=== PATIENT | male | born 1975 | race Caucasian/White ===

== ENCOUNTER 2020-09-06 17:18 | Inpatient (IN) | payer OTHER ==
[~2020-09-06] VITALS: Ht 172.7 cm; Wt 100.0 kg
[2020-09-06 18:24] LABS: BASOPHILS # (AUTO) 0.1 X10'3 (0-0.2); BASOPHILS % (AUTO) 0.9 % (0-1); EOSINOPHILS # (AUTO) 0.1 X10'3 (0-0.9); EOSINOPHILS % (AUTO) 0.8 % (0-6); HEMATOCRIT 53.5 % (42.0-52.0); LYMPHOCYTES # (AUTO) 1.4 X10'3 (1.1-4.8); LYMPHOCYTES % (AUTO) 14.1 % (21-51); MEAN CORPUSCULAR HEMOGLOBIN 31.1 PG (27.0-31.0); MEAN CORPUSCULAR VOLUME 91.5 FL (78-98); MEAN PLATELET VOLUME 9.9 FL (7.4-10.4); MONOCYTES # (AUTO) 0.7 X10'3 (0-0.9); MONOCYTES % (AUTO) 6.6 % (2-12); NEUTROPHILS # (AUTO) 7.8 X10'3 (1.8-7.7); NEUTROPHILS % (AUTO) 77.6 % (42-75); PLATELET COUNT 263 X10'3 (140-440); RED BLOOD COUNT 5.84 X10'6 (4.70-6.10); RED CELL DISTRIBUTION WIDTH 13.1 % (11.5-14.5); WHITE BLOOD COUNT 10.1 X10'3 (4.5-11.0)
[2020-09-06 18:29] LABS: HEMOGLOBIN 18.2 g/dl (14.0-17.9)
[2020-09-06 18:32] LABS: ALANINE AMINOTRANSFERASE 249 U/L (12-78); ALBUMIN 3.7 G/DL (3.4-5.0); ALBUMIN/GLOBULIN RATIO 0.9 (1.1-1.5); ALKALINE PHOSPHATASE 446 IU/L (46-116); ANION GAP 7 (8-16); ASPARTATE AMINO TRANSFERASE 105 U/L (10-37); BILIRUBIN,TOTAL 6.7 MG/DL (0.1-1.0); BLOOD UREA NITROGEN 15 MG/DL (7-18); CALCIUM 11.3 MG/DL (8.5-10.1); CHLORIDE 99 MMOL/L (99-107); CREATININE 1.07 MG/DL (0.60-1.10); GLUCOSE 107 MG/DL (70-104); LIPASE 57 U/L (73-393); POTASSIUM 3.7 MMOL/L (3.5-5.1); SODIUM 137 MMOL/L (135-145); TOTAL CARBON DIOXIDE 31.3 MMOL/L (24-32); TOTAL PROTEIN 7.6 G/DL (6.4-8.2); eGFR 75 ML/MIN
[2020-09-06] MEDS ORDERED: pantoprazole 40 MG vial IV ONE (18:45)
[2020-09-06] MEDS ORDERED: ondansetron/PF 4mg/2ml inj IV ONE (18:45)
[2020-09-06] MEDS ORDERED: normal saline 1000ML IV soln IVB ONE (18:45)
--- NOTE | 2020-09-06 18:59 | NUR ---
U/S CALLED BACK AT [address]
--- NOTE | 2020-09-06 20:24 | NUR ---
PT STATES HE IS IN ALOT OF PAIN MD AWARE BUT CONCERNED HE WILL RECEIVE PAIN MEDS AND THEN LEAVE AND DRIVE. JUDY RN WORKING ON GETTING PTS SISTERS PHONE NUMBER
--- NOTE | 2020-09-06 20:29 | NUR ---
PTS SISTER CALLED TWICE [phone], NO ANSWER. AWAITING TRANSPORT TO ADMINISTER PAIN MEDICATION BECAUSE PT DROVE HIMSELF TO HOSPITAL.
--- NOTE | 2020-09-06 20:30 | NUR ---
INFORMED BY RON KIM THAT THE SISTER DID NOT ANSWER THE PHONE.
[2020-09-06] MEDS ORDERED: morphine 4 MG/ML inj SYRINge IV ONE (20:35)
[2020-09-06] MEDS ORDERED: LORazepam 2 mg/ml vial IV ONE (20:35)
--- NOTE | 2020-09-06 20:38 | NUR ---
SPOKE TO YURI: FRIEND...[phone] HE IS AWARE THAT HE IS HERE,
[2020-09-06] MEDS ORDERED: piperacillin/tazo 3.375gm/50ml 50 ML IV ONE (20:45)
[2020-09-06] MEDS ORDERED: morphine 2 MG/ML inj. syringe IV PRN (21:05)
[2020-09-06] MEDS ORDERED: potassium Cl 40MEQ/1/2NS 520ml 520 ML IV PRN ×2 (21:05)
[2020-09-06] MEDS ORDERED: ondansetron/PF 4mg/2ml inj IV PRN (21:05)
[2020-09-06] MEDS: normal saline 1000ml 1,000 ML IV SCH (21:13)
[2020-09-06] MEDS ORDERED: NO HOME MEDS (21:53)
[2020-09-06 22:05] VITALS: BP 153/95
--- NOTE | 2020-09-06 22:05 | NUR ---
PATIENT ADMITTED TO ROOM 347B FROM ER FOR CHOLECYSTITIS, CHOLEDOCHOLITHIASIS, HYPERCALCEMIA, POLYCYTHEMIA AND CHI. PLACED COMFORTABLE IN BED. VITAL SIGNS TAKEN AND RECORDED.
[2020-09-06] MEDS ORDERED: LORazepam 2 mg/ml vial IV PRN (22:25)
[2020-09-06] MEDS: diphenhydrAMINE 2%/zinc acetate cream TP PRN (22:57)
[2020-09-07] MEDS: normal saline 1000ml 1,000 ML IV SCH ×2 (05:30→15:49)
[2020-09-07] MEDS: piperacillin/tazo 3.375gm/50ml 50 ML IV SCH ×3 (05:37→22:12)
--- NOTE | 2020-09-07 06:14 | NUR ---
Problems reprioritized. Patient report given, questions answered & plan of care reviewed with SANG RN.
--- NOTE | 2020-09-07 06:25 | NUR ---
Patient in room [facility] 347. I have received report from Tana Fajardo RN and had the opportunity to ask questions and assume patient care.
[2020-09-07 06:39] LABS: BASOPHILS % (AUTO) 0.4 % (0-1); EOSINOPHILS # (AUTO) 0.1 X10'3 (0-0.9); EOSINOPHILS % (AUTO) 0.6 % (0-6); HEMATOCRIT 48.8 % (42.0-52.0); HEMOGLOBIN 16.3 g/dl (14.0-17.9); LYMPHOCYTES # (AUTO) 0.9 X10'3 (1.1-4.8); LYMPHOCYTES % (AUTO) 10.8 % (21-51); MEAN CORPUSCULAR HGB CONC 33.5 g/dL (33.0-36.5); MEAN CORPUSCULAR VOLUME 92.7 FL (78-98); MEAN PLATELET VOLUME 10.5 FL (7.4-10.4); MONOCYTES # (AUTO) 0.7 X10'3 (0-0.9); NEUTROPHILS # (AUTO) 6.9 X10'3 (1.8-7.7); NEUTROPHILS % (AUTO) 80.2 % (42-75); PLATELET COUNT 217 X10'3 (140-440); RED BLOOD COUNT 5.27 X10'6 (4.70-6.10); RED CELL DISTRIBUTION WIDTH 13.5 % (11.5-14.5); WHITE BLOOD COUNT 8.6 X10'3 (4.5-11.0)
[2020-09-07 07:00] VITALS: BP 129/83
[2020-09-07 07:29] LABS: ALANINE AMINOTRANSFERASE 177 U/L (12-78); ALKALINE PHOSPHATASE 401 IU/L (46-116); ANION GAP 12 (8-16); ASPARTATE AMINO TRANSFERASE 65 U/L (10-37); BILIRUBIN,TOTAL 8.5 MG/DL (0.1-1.0); BLOOD UREA NITROGEN 12 MG/DL (7-18); BUN/CREATININE RATIO 12.6 (5.4-32.0); CALCIUM 9.1 MG/DL (8.5-10.1); CHLORIDE 104 MMOL/L (99-107); CREATININE 0.95 MG/DL (0.60-1.10); GLUCOSE 103 MG/DL (70-104); SODIUM 140 MMOL/L (135-145); TOTAL CARBON DIOXIDE 24.2 MMOL/L (24-32); eGFR 86 ML/MIN
[2020-09-07 07:31] LABS: ALBUMIN/GLOBULIN RATIO 0.9 (1.1-1.5); POTASSIUM 4.3 MMOL/L (3.5-5.1); TOTAL PROTEIN 6.3 G/DL (6.4-8.2)
[2020-09-07] MEDS: K and/or MAG REPLACEMENT MC SCH ×2 (08:00→20:00)
--- NOTE | 2020-09-07 08:21 | NUR ---
Dr. Simpson in to see patient. Possible removal of gallbladder tomorrow pending MRCP today. Risks and Benefits explained by MD with patients Verbal acknowledgement.
[2020-09-07] MEDS ORDERED: haloperidol lactate 5mg/ml inj IM PRN ×2 (10:50)
[2020-09-07] MEDS ORDERED: haloperidol 5mg tablet PO PRN ×2 (10:50)
[2020-09-07] MEDS ORDERED: LORazepam 2 mg/ml vial IV PRN ×2 (10:50)
[2020-09-07 11:06] VITALS: BP 112/67
[2020-09-07] MEDS ORDERED: nicotine 21mg patch - 24 hr TD ONE (11:50)
[2020-09-07] MEDS: diphenhydrAMINE 2%/zinc acetate cream TP PRN (12:24)
[2020-09-07] MEDS: HYDROmorphone 1 mg/ml syringe IV PRN (17:18)
--- NOTE | 2020-09-07 19:00 | NUR ---
Problems reprioritized. Patient report given, questions answered & plan of care reviewed with RON Paredes.
--- NOTE | 2020-09-07 19:24 | NUR ---
Patient in room [facility] 347. I have received report from RON Pickett and had the opportunity to ask questions and assume patient care.
--- NOTE | 2020-09-07 19:25 | NUR ---
I have received report from RON Pickett and had the opportunity to ask questions and assume patient care.
[2020-09-07] MEDS: lactobacillus rhamnosus 10,000 MMU CELLS/CAPSULE PO SCH (19:57)
[2020-09-07] MEDS: LORazepam 1 MG tablet PO PRN (19:57)
[2020-09-07 20:00] VITALS: BP 146/100
[2020-09-07 23:40] VITALS: BP 153/90
[2020-09-08] VITALS (14 sets, daily range): BP systolic 100–176; BP diastolic 55–115
[2020-09-08] MEDS: normal saline 1000ml 1,000 ML IV SCH ×3 (00:59→23:05)
[2020-09-08] MEDS: LORazepam 1 MG tablet PO PRN ×2 (00:59→21:50)
[2020-09-08] MEDS: piperacillin/tazo 3.375gm/50ml 50 ML IV SCH ×3 (05:37→21:54)
[2020-09-08 06:16] LABS: BASOPHILS % (AUTO) 0.3 % (0-1); EOSINOPHILS # (AUTO) 0.1 X10'3 (0-0.9); EOSINOPHILS % (AUTO) 1.2 % (0-6); HEMATOCRIT 48.2 % (42.0-52.0); HEMOGLOBIN 16.5 g/dl (14.0-17.9); LYMPHOCYTES # (AUTO) 0.9 X10'3 (1.1-4.8); LYMPHOCYTES % (AUTO) 9.7 % (21-51); MEAN CORPUSCULAR HEMOGLOBIN 31.6 PG (27.0-31.0); MEAN CORPUSCULAR HGB CONC 34.1 g/dL (33.0-36.5); MEAN CORPUSCULAR VOLUME 92.7 FL (78-98); MEAN PLATELET VOLUME 9.7 FL (7.4-10.4); MONOCYTES # (AUTO) 0.6 X10'3 (0-0.9); MONOCYTES % (AUTO) 6.6 % (2-12); NEUTROPHILS # (AUTO) 7.6 X10'3 (1.8-7.7); NEUTROPHILS % (AUTO) 82.2 % (42-75); PLATELET COUNT 183 X10'3 (140-440); RED CELL DISTRIBUTION WIDTH 13.1 % (11.5-14.5); WHITE BLOOD COUNT 9.2 X10'3 (4.5-11.0)
[2020-09-08 06:19] LABS: PRE OP PARTIAL THROMB. TIME 28 SECONDS (22-32)
--- NOTE | 2020-09-08 06:20 | NUR ---
Patient in room [facility] 347. I have received report from RON Paredes and had the opportunity to ask questions and assume patient care.
--- NOTE | 2020-09-08 06:26 | NUR ---
Problems reprioritized. Patient report given, questions answered & plan of care reviewed with RON Pickett.
--- NOTE | 2020-09-08 06:27 | NUR ---
Patient report given, questions answered & plan of care reviewed with RON Pickett from [facility] Don[facility] CONN. I agree with her report and documentation during this shift..
[2020-09-08 06:45] LABS: ALANINE AMINOTRANSFERASE 118 U/L (12-78); ALBUMIN 2.9 G/DL (3.4-5.0); ALKALINE PHOSPHATASE 379 IU/L (46-116); ANION GAP 12 (8-16); ASPARTATE AMINO TRANSFERASE 43 U/L (10-37); BILIRUBIN,TOTAL 10.1 MG/DL (0.1-1.0); BLOOD UREA NITROGEN 8 MG/DL (7-18); BUN/CREATININE RATIO 9.8 (5.4-32.0); CALCIUM 8.9 MG/DL (8.5-10.1); CHLORIDE 100 MMOL/L (99-107); CREATININE 0.82 MG/DL (0.60-1.10); GLUCOSE 93 MG/DL (70-104); SODIUM 136 MMOL/L (135-145); TOTAL CARBON DIOXIDE 24.1 MMOL/L (24-32); eGFR > 90 ML/MIN
[2020-09-08 06:47] LABS: ALBUMIN/GLOBULIN RATIO 0.8 (1.1-1.5); TOTAL PROTEIN 6.6 G/DL (6.4-8.2)
[2020-09-08] MEDS: K and/or MAG REPLACEMENT MC SCH ×2 (07:40→20:00)
--- NOTE | 2020-09-08 07:45 | NUR ---
Reported VS to Dr Walton
[2020-09-08] MEDS: lactobacillus rhamnosus 10,000 MMU CELLS/CAPSULE PO SCH ×2 (08:47→20:03)
[2020-09-08] MEDS: nicotine 21mg patch - 24 hr TD SCH (08:48)
[2020-09-08] MEDS ORDERED: MIDAZolam 5mg/5ml vial ONE (09:10)
[2020-09-08] MEDS ORDERED: fentaNYL/PF 50MCG/1 ML 2ML syringe ONE (09:10)
[2020-09-08] MEDS ORDERED: iohexol 300 MG/1 ML 50ml polymer ONE (09:11)
[2020-09-08] MEDS ORDERED: diphenhydrAMINE 50 mg/ml inj ONE (09:11)
[2020-09-08] MEDS ORDERED: LIDOcaine Viscous 15ml cup ONE (09:11)
[2020-09-08] MEDS ORDERED: glucagon, human recombinant 1mg kit ONE (09:12)
[2020-09-08] MEDS ORDERED: metoprolol tartrate 25mg tablet PO ONE (13:10)
--- NOTE | 2020-09-08 18:30 | NUR ---
Patient in room [facility] 347. I have received report from Nieves VELASQUEZ and had the opportunity to ask questions and assume patient care.
--- NOTE | 2020-09-08 18:30 | NUR ---
Problems reprioritized. Patient report given, questions answered & plan of care reviewed with RON Cowart.
[2020-09-08] MEDS: metoprolol tartrate 25mg tablet PO SCH (20:06)
[2020-09-09] VITALS (14 sets, daily range): BP systolic 100–143; BP diastolic 55–93
[2020-09-09] MEDS: normal saline 1000ml 1,000 ML IV SCH ×3 (01:23→22:37)
[2020-09-09] MEDS: piperacillin/tazo 3.375gm/50ml 50 ML IV SCH ×3 (05:16→22:39)
[2020-09-09 06:10] LABS: BASOPHILS % (AUTO) 0.6 % (0-1); EOSINOPHILS # (AUTO) 0.2 X10'3 (0-0.9); EOSINOPHILS % (AUTO) 2.8 % (0-6); HEMATOCRIT 44.8 % (42.0-52.0); HEMOGLOBIN 15.2 g/dl (14.0-17.9); LYMPHOCYTES # (AUTO) 1.1 X10'3 (1.1-4.8); LYMPHOCYTES % (AUTO) 16.2 % (21-51); MEAN CORPUSCULAR HEMOGLOBIN 30.9 PG (27.0-31.0); MEAN CORPUSCULAR HGB CONC 33.8 g/dL (33.0-36.5); MEAN CORPUSCULAR VOLUME 91.5 FL (78-98); MEAN PLATELET VOLUME 9.4 FL (7.4-10.4); MONOCYTES # (AUTO) 0.4 X10'3 (0-0.9); MONOCYTES % (AUTO) 6.1 % (2-12); NEUTROPHILS # (AUTO) 5.2 X10'3 (1.8-7.7); NEUTROPHILS % (AUTO) 74.3 % (42-75); PLATELET COUNT 175 X10'3 (140-440); RED CELL DISTRIBUTION WIDTH 13.3 % (11.5-14.5)
[2020-09-09 06:30] LABS: ALANINE AMINOTRANSFERASE 77 U/L (12-78); ALBUMIN 2.4 G/DL (3.4-5.0); ALKALINE PHOSPHATASE 307 IU/L (46-116); ANION GAP 11 (8-16); ASPARTATE AMINO TRANSFERASE 39 U/L (10-37); BILIRUBIN,TOTAL 11.1 MG/DL (0.1-1.0); BLOOD UREA NITROGEN 9 MG/DL (7-18); BUN/CREATININE RATIO 12.2 (5.4-32.0); CALCIUM 8.7 MG/DL (8.5-10.1); CHLORIDE 105 MMOL/L (99-107); CREATININE 0.74 MG/DL (0.60-1.10); GLUCOSE 88 MG/DL (70-104); SODIUM 141 MMOL/L (135-145); TOTAL CARBON DIOXIDE 24.6 MMOL/L (24-32); eGFR > 90 ML/MIN
--- NOTE | 2020-09-09 06:30 | NUR ---
Problems reprioritized. Patient report given, questions answered & plan of care reviewed with Kathy VELASQUEZ. Addendum: 09/09/20 at 0651 by Sofya Calix RN RON Chavez RN
[2020-09-09 06:35] LABS: ALBUMIN/GLOBULIN RATIO 0.7 (1.1-1.5)
[2020-09-09] MEDS: K and/or MAG REPLACEMENT MC SCH ×2 (08:00→20:00)
[2020-09-09] MEDS: lactobacillus rhamnosus 10,000 MMU CELLS/CAPSULE PO SCH ×2 (08:00→20:05)
[2020-09-09] MEDS: metoprolol tartrate 25mg tablet PO SCH ×2 (08:34→20:04)
[2020-09-09] MEDS: nicotine 21mg patch - 24 hr TD SCH (08:34)
--- NOTE | 2020-09-09 08:45 | NUR ---
Per OR charge nurse Hector, patient scheduled surgery is today @ 18:00. Charge nurse Concetta notified
--- NOTE | 2020-09-09 08:51 | NUR ---
Paged Dr. Walton PAGER ID: [phone] MESSAGE: Marzena Coto RN ext [phone]. RE: Rafael Rodriguez. Patient requesting Calamine lotion for itchiness on his feet. He said it must be "poison oak".
[2020-09-09] MEDS ORDERED: famotidine/PF 10 mg/ml inj IV ONE ×3 (08:55→17:38)
[2020-09-09] MEDS ORDERED: calamine LOTION TP PRN (09:05)
--- NOTE | 2020-09-09 09:26 | NUR ---
Attempted to insert a secondary peripheral IV catheter g20 on the patient with no success. Patient currently has g22 peripheral IV catheter on the left forearm. I could not find a good vein as patient's arms are covered with tattoos. PICC nurse paged to assist with placing a g20 peripheral IV catheter.
[2020-09-09] MEDS ORDERED: LORazepam 2 mg/ml vial IV PRN (10:50)
[2020-09-09] MEDS ORDERED: LORazepam 1 MG tablet PO PRN (10:50)
[2020-09-09] MEDS ORDERED: BUPIVAcaine/PF 2.5 mg/ml (0.25%) 30ml vial ONE (16:54)
--- NOTE | 2020-09-09 16:55 | NUR ---
Patient went to OR for surgery. Report given to Livan VELASQUEZ from PACU
[2020-09-09] MEDS ORDERED: sevoflurane 250ml liquid IH ONE (17:15)
[2020-09-09] MEDS ORDERED: midazolam 2 mg/2 ml injection ONE (17:17)
[2020-09-09] MEDS ORDERED: fentaNYL /PF 50mcg/ml 5ml ampule ONE (17:18)
[2020-09-09] MEDS ORDERED: ketorolac trometh. 30mg/ml inj. IV ONE (17:40)
[2020-09-09] MEDS ORDERED: acetaminophen 1,000mg/100ml IV 100 ML IV PRN (17:40)
[2020-09-09] MEDS ORDERED: ringers solution, lacted 1,000 ML IV SCH (17:40)
[2020-09-09] MEDS ORDERED: meperidine/PF 25mg/ml syringe IV PRN ×3 (17:40)
[2020-09-09] MEDS ORDERED: labetalol 20mg/4ml (5mg/ml) syringe IV PRN (17:40)
[2020-09-09] MEDS ORDERED: morphine 4 MG/ML inj SYRINge IV PRN (17:40)
[2020-09-09] MEDS ORDERED: proCHLORperazine 10 MG/2 ml inj IV PRN (17:40)
[2020-09-09] MEDS ORDERED: hydrALAZINE 20mg/ml inj. IV PRN (17:40)
[2020-09-09] MEDS ORDERED: morphine 2 MG/ML inj. syringe IV PRN (17:40)
[2020-09-09] MEDS ORDERED: ondansetron/PF 4mg/2ml inj IV PRN (17:40)
[2020-09-09] MEDS ORDERED: LIDOcaine 2% (20mg/ml) 5ml vial ONE (17:52)
[2020-09-09] MEDS ORDERED: propofol inj 20 ML IV ONE (17:52)
[2020-09-09] MEDS ORDERED: ceFOXitin 1000 MG inj ONE ×2 (17:52)
[2020-09-09] MEDS ORDERED: ondansetron/PF 4mg/2ml inj ONE (17:53)
[2020-09-09] MEDS ORDERED: rocuronium 10mg/ml inj IV ONE (17:53)
[2020-09-09] MEDS ORDERED: dexamethasone sod phosphate 4mg/ml inj. ONE (17:53)
[2020-09-09] MEDS ORDERED: neostigmine methylsulfate 1 MG/ML 10ml vial ONE (18:22)
[2020-09-09] MEDS ORDERED: glycopyrrolate 0.2mg/ml inj ONE (18:22)
--- NOTE | 2020-09-09 18:30 | NUR ---
Received from OR via , accompanied by Anesthesiologist DR VALDEZ and report given by Anesthesiolgist. AWAKENS TO VOICE. VITALS STABLE. DRESSINGS DI. SANG PAIN. ABD SOFT.
--- NOTE | 2020-09-09 18:39 | NUR ---
Problems reprioritized. Patient report given, questions answered & plan of care reviewed with Sofya VELASQUEZ.
--- NOTE | 2020-09-09 18:49 | NUR ---
Patient in room PACU 2. I have received report from Chica VELASQUEZ and had the opportunity to ask questions and assume patient care. Patient currently in surgery.
--- NOTE | 2020-09-09 19:20 | NUR ---
Report called to receiving nurse. Transferred via BED Belongings . Special Issues communicated to receiving nurse. AWAKE AND ORIENTED. VITALS STABLE. DRESSINGS DI. STATES PAIN IMPROVING. TO SURGICAL RM 347B AT THIS TIME.
--- NOTE | 2020-09-09 19:21 | NUR ---
Received report from cigarette paper tester Jerry. Patient to follow shortly.
--- NOTE | 2020-09-09 19:30 | NUR ---
Patient arrived from recovery via bed. Alert, drowsy. VS initiated.
[2020-09-09] MEDS: HYDROmorphone 1 mg/ml syringe IV PRN (19:57)
[2020-09-10] VITALS: BP 154/77
[2020-09-10 03:23] VITALS: BP 130/86
[2020-09-10] MEDS: piperacillin/tazo 3.375gm/50ml 50 ML IV SCH (05:21)
--- NOTE | 2020-09-10 06:26 | NUR ---
Problems reprioritized. Patient report given, questions answered & plan of care reviewed with Chica VELASQUEZ.
[2020-09-10 07:00] VITALS: BP 153/97
[2020-09-10] MEDS: K and/or MAG REPLACEMENT MC SCH (08:00)
[2020-09-10] MEDS: metoprolol tartrate 25mg tablet PO SCH (08:00)
[2020-09-10] MEDS: lactobacillus rhamnosus 10,000 MMU CELLS/CAPSULE PO SCH (08:00)
[2020-09-10] MEDS: nicotine 21mg patch - 24 hr TD SCH (08:00)
[2020-09-10 08:01] LABS: BASOPHILS % (AUTO) 0.1 % (0-1); EOSINOPHILS % (AUTO) 0 % (0-6); HEMATOCRIT 44.7 % (42.0-52.0); HEMOGLOBIN 15.1 g/dl (14.0-17.9); LYMPHOCYTES # (AUTO) 0.6 X10'3 (1.1-4.8); LYMPHOCYTES % (AUTO) 7.7 % (21-51); MEAN CORPUSCULAR HEMOGLOBIN 31.3 PG (27.0-31.0); MEAN CORPUSCULAR HGB CONC 33.8 g/dL (33.0-36.5); MEAN CORPUSCULAR VOLUME 92.6 FL (78-98); MEAN PLATELET VOLUME 10.2 FL (7.4-10.4); MONOCYTES # (AUTO) 0.2 X10'3 (0-0.9); MONOCYTES % (AUTO) 2.3 % (2-12); NEUTROPHILS # (AUTO) 6.5 X10'3 (1.8-7.7); NEUTROPHILS % (AUTO) 89.9 % (42-75); PLATELET COUNT 206 X10'3 (140-440); RED BLOOD COUNT 4.83 X10'6 (4.70-6.10); RED CELL DISTRIBUTION WIDTH 13.5 % (11.5-14.5); WHITE BLOOD COUNT 7.2 X10'3 (4.5-11.0)
[2020-09-10 08:18] LABS: ALANINE AMINOTRANSFERASE 84 U/L (12-78); ALBUMIN 2.4 G/DL (3.4-5.0); ALKALINE PHOSPHATASE 280 IU/L (46-116); ANION GAP 11 (8-16); ASPARTATE AMINO TRANSFERASE 74 U/L (10-37); BLOOD UREA NITROGEN 11 MG/DL (7-18); BUN/CREATININE RATIO 15.1 (5.4-32.0); CALCIUM 9.2 MG/DL (8.5-10.1); CHLORIDE 103 MMOL/L (99-107); CREATININE 0.73 MG/DL (0.60-1.10); GLUCOSE 185 MG/DL (70-104); SODIUM 137 MMOL/L (135-145); TOTAL CARBON DIOXIDE 23.4 MMOL/L (24-32); eGFR > 90 ML/MIN
[2020-09-10 08:21] LABS: ALBUMIN/GLOBULIN RATIO 0.6 (1.1-1.5); POTASSIUM 4.2 MMOL/L (3.5-5.1); TOTAL PROTEIN 6.3 G/DL (6.4-8.2)
[2020-09-10 11:00] VITALS: BP 139/94
[2020-09-10] MEDS ORDERED: metoprolol tartrate tablet PO (11:18)
[2020-09-10] MEDS ORDERED: NICO-687 TD (11:18)
[2020-09-10] MEDS ORDERED: METO25TA6 PO (11:19)
--- NOTE | 2020-09-10 12:20 | NUR ---
Discharge instructions given to patient, patient verbalized understanding of all instructions made. Peripheral IV catheter removed, tip intact. Instructed patient to ensure he has all his belongings with him before leaving. Patient stated he could drive back home and that he has not been on narcotic today. Patient insisted to walk to the lobby, did not want to be wheelchair out. Yellow scrip for blood work tomorrow was instructed and given to patient. New meds e-script to pharmacy and patient was given extra bandages to take home
[2020-09-11] MEDS ORDERED: LORazepam 1 MG tablet PO PRN (10:50)
[2020-09-11] MEDS ORDERED: LORazepam 2 mg/ml vial IV PRN (10:50)
--- NOTE | 2020-09-11 13:31 | NUR ---
CASE MANAGEMENT DISCHARGE FOLLOW UP: Spoke with PT via telephone. Reports that he is doing okay, admits to some minor discomfort r/t vasu in abdomen; denies abdominal pain, CP, fever/chills, N/V, SOB/dyspnea, s/sx of infection. Pt states that his sister is an RN at [facility] and that she will be able to help him out with questions/concerns. Pt states does not have insurance and is concerned about being able to pay for future appts, states working with the hospital. Pt states tried to get bloodwork drawn this morning per MD instruction, however could not find his paperwork and the hospital could not find an order. Upon inquiry, pt states that he has not called Dr Martinez, states that he does not want to schedule any more appointments until he figures out insurance/financial situation. Verbalizes understanding of s/sx requiring further evaluation/emergent assistance. Verbalizes understanding of new medications. Verbalizes understanding of MD discharge instructions. Pt states that his sister will remove his vasu when ready. States no further questions/concerns at this time.
== END 2020-09-10 12:17 | disposition home or self-care (01) | DRG 419 ==
LOC: ER 17:19 → ED HOLD 21:03 → SUR 3N 22:00 → PACU 09-09 17:02 → SUR 3N 09-09 19:40
PROVIDERS: ADMIT Internal Medicine; ATTEND Family Medicine
PROC: 0FC98ZZ Extirpation of Matter from Common Bile Duct, Via Natural or Artificial Opening Endoscopic (ICD-10-PCS; 2020-09-08)
PROC: 0FPD8DZ Removal of Intraluminal Device from Pancreatic Duct, Via Natural or Artificial Opening Endoscopic (ICD-10-PCS; 2020-09-08)
PROC: 0F7D8DZ Dilation of Pancreatic Duct with Intraluminal Device, Via Natural or Artificial Opening Endoscopic (ICD-10-PCS; 2020-09-08)
PROC: BF101ZZ Fluoroscopy of Bile Ducts using Low Osmolar Contrast (ICD-10-PCS; 2020-09-08)
PROC: 0FT44ZZ Resection of Gallbladder, Percutaneous Endoscopic Approach (ICD-10-PCS; principal; 2020-09-09 17:15)
DX: K80.62 Calculus of gallbladder and bile duct with acute cholecystitis without obstruction (principal); I10 Essential (primary) hypertension; F17.200 Nicotine dependence, unspecified, uncomplicated; F10.20 Alcohol dependence, uncomplicated; F12.90 Cannabis use, unspecified, uncomplicated; R00.0 Tachycardia, unspecified; Z20.822 Contact with and (suspected) exposure to COVID-19; R74.01 Elevation of levels of liver transaminase levels; R74.8 Abnormal levels of other serum enzymes; Z87.828 Personal history of other (healed) physical injury and trauma; Z46.59 Encounter for fitting and adjustment of other gastrointestinal appliance and device
CPT/HCPCS: 43262; 43264; 96374; 96375; 99285; Z7506; Z7508; 36415; 74181; 76700; 76937; 80053; 82948; 83690; 83970; 85025; 85610; 85730; 87081; 87426; 93005; 99152; 99153; A4215; A4618; A4620; A7000; C1769; C1773; C2617; C9113; G0378; J0131; J0694; J1100; J1170; J1200; J1610; J1885; J2001; J2060; J2250; J2270; J2405; J2543; J2704; J2710; J3010; J3490; J7030; J7040; J7120; Q9967